=== PATIENT | female | born 1960 | race Two or more races ===

== ENCOUNTER 2024-06-30 12:28 | Outpatient (REF) | payer OTHER, SELFPAY ==
[2024-06-30 13:38] LABS: Alanine Aminotransferase 28 U/L (0-31); Albumin Level 3.9 g/dL (3.5-5.0); Alkaline Phosphatase 134 U/L (39-117); Anion Gap 9 (12-20); Aspartate Amino Transferase 20 U/L (5-31); Bilirubin Direct 0.2 mg/dL (0.0-0.5); Bilirubin Total 0.6 mg/dL (0.0-1.0); Blood Urea Nitrogen 13 mg/dL (9-16); Calcium 9.5 mg/dL (8.4-10.2); Carbon Dioxide 28 mmol/L (22-29); Chloride 108 mmol/L (96-108); Estimated Glomerular Filt Rate > 60; Glucose Random 106 mg/dL (60-115); Potassium 4.3 mmol/L (3.3-5.1); Sodium 141 mmol/L (135-145); Total Protein 7.1 g/dL (6.5-8.0)
[2024-06-30 13:49] LABS: Erythrocyte Sedimentation Rate 45 MM/HR (0-20)
[2024-06-30 13:51] LABS: Rheumatoid Factor < 13.0 IU/mL (<15.0)
[2024-06-30 13:58] LABS: Syphilis Screen Nonreactive (Nonreactive)
--- OUTSIDE RECORDS SUMMARY | 2024-06-30 14:48 | XMS_ITS | Clinical Summary ---
Author Organization [facility] Address [address] [place] [address] Care Team Providers Care Pathological Technician Name Role Phone Ioana Winkler MD Primary Care Provide r Allergies Active Allergy Reactions Criticality Noted Date Comments Hydrocodone-Acetaminop hen Swelling 04/18/2018 Intestines get swollen Penicillins Anaphylaxis High 11/23/2009 Tramadol Other (See Comments) 06/24/2014 Medications Medication Sig Dispensed Refills Start Date End Date Status clonazePAM (KlonoPIN) 2 MG tablet 0 04/17/2019 Active VRAYLAR 3 MG CAPS TK 1 C PO QAM . START 02-20-19 0 05/05/2019 Active cyclobenzaprine (FEXMID) 7.5 MG tablet cyclobenzaprine 7.5 mg tablet 0 02/28/2018 Active DULoxetine (CYMBALTA) DR capsule 60 mg 0 04/25/2019 Active fluticasone (FLONASE) 50 MCG/ACT nasal spray SHAKE WELL AND INSTILL 2 SPRAYS INTO EACH NOSTRIL DAILY 0 05/06/2019 Active hydrOXYzine (VISTARIL) 100 MG capsule hydroxyzine pamoate 100 mg capsule 0 Active loratadine (CLARITIN) 10 MG tablet loratadine 10 mg tablet 0 02/06/2019 Active omeprazole (PriLOSEC) 40 MG capsule TK 1 C PO D 0 05/05/2019 Active prazosin (MINIPRESS) 1 MG capsule TK 1 C PO QHS START ON 02-20-19 0 05/05/2019 Active Active Problems Problem Noted Date Diagnosed Date Asthma 05/11/2019 Chronic back pain 05/11/2019 HTN (hypertension) 05/11/2019 Diverticulosis 02/12/2018 Drug-seeking behavior 02/12/2018 Elevated LFTs 02/12/2018 History of claustrophobia 02/12/2018 History of gastric bypass 02/12/2018 Overview: Overview: Morbid obesity with BMI of 45.0-49.9 History of pancreatitis 02/12/2018 Hypokalemia 02/12/2018 Scoliosis of thoracic spine 02/12/2018 Class 1 obesity due to exces s calories with serious comorbidity and body mass index (BMI) of 32.0 to 32.9 in adult 12/26/2017 Abdominal pannus 07/15/2017 Intertrigo 07/15/2017 Lipodystrophy 07/15/2017 Allergic rhinitis 06/06/2017 Fibromyalgia 06/06/2017 Gastroesophageal reflux disease 06/06/2017 Migraine 06/06/2017 THAO on CPAP 06/06/2017 Post traumatic stress disorder (PTSD) 06/06/2017 Vitamin D deficiency 05/30/2017 Prolapsed bladder 05/16/2017 Social History Tobacco Use Types Packs/Day Years Used Date Smoking Tobacco: Never Smokeless Tobacco: Never Alcohol Use Standard Drinks/Week Comments No 0 (1 standard drink = 0.6 oz pur e alcohol) Sex and Gender Information Value Date Recorded Sex Assigned at Not on file Gender Identity Not on file Sexual Orientation Not on file Job Start Date Occupation Industry Not on file Not on file Not on file Last Filed Vital Signs Vital Sign Reading Time Taken Comments Blood Pressure - - Pulse - - Temperature - - Respiratory Rate - - Oxygen Saturation - - Inhaled Oxygen Concentration - - Weight 56.7 kg (125 lb) 05/11/2019 11:05 AM EST Height 157.5 cm (5' 2 ) 05/11/2019 11:05 AM EST Body Mass Index 22.86 05/11/2019 11:05 AM EST Plan of Treatment Health Maintenance Due Date Last Done Comments Hepatitis C Screening 1960 COVID-19 Vaccine (#1) 06/15/1960 Depression Screening 1971 Preventative Health Evaluation 12/15/1977 DTap / Tdap / Td (1 - Tdap) 12/15/1978 Cervical Cancer Screening (Pap Smear) 12/15/1980 Colon Cancer Screening (Colonoscopy) 12/15/2004 Breast Cancer Screening (Mammogram) 12/15/2009 Shingrix-Zoster Vaccine (1 o f 2) 12/15/2009 Pneumococcal Vaccine (2 of 2 - PPSV23 or PCV20) 03/28/2016 02/01/2016 Pneumococcal Vaccine (2 of 2 - PPSV23 or PCV20) 03/28/2016 02/01/2016 Influenza Vaccine (#1) 2023 9, 12/06/2016 RSV Adult > 60+ Yrs or (1 - 1-dose 75+ series) 12/15/2034 Hepatitis B Vaccines Aged Out No long er eligible based on patient's age to complete this topic RSV Ped < 20 months Aged Out No longe r eligible based on patient's age to complete this topic Care Teams Pathological Technician Relationship Specialty Start Date End Date Ioana Winkler MD PCP - General Internal Medicine 02/04/18
--- OUTSIDE RECORDS SUMMARY | 2024-06-30 14:48 | XMS_ITS | Clinical Summary ---
Author Organization [facility] [address] [place] [address] [place] [phone] Phone Care Team Providers Care Change Management Name Role Phone Syl Ardon MD Primary Care Provider [phone] Allergies No known active allergies Medications atorvastatin (LIPITOR) 20 mg tablet TAKE 1 TABLET BY MOUTH EVERY DAY 90 tablet 1 4 Active SUMAtriptan (IMITREX) 100 mg tablet TAKE 1 TABLET BY MOUTH 1 TIME IF NEEDED FOR MIGRAINE. MAY REPEAT DOSE ONCE IN 2 HOURS IF NO RELIEF. DO NOT EXCEED 2 DOSES IN 24 HOURS. 9 tablet 1 5 Active pantoprazole (PROTONIX) 40 mg EC tablet TAKE 1 TABLET BY MOUTH EVERY DAY 90 tablet 5 Active acetaminophen (TYLENOL) 500 mg tablet TAKE 2 TABLETS BY MOUTH EVERY 8 HOURS FOR 30 DAYS. 180 tablet 1 5 07/12/19 25 Active acetaminophen (TYLENOL) 500 mg tablet TAKE 2 TABLETS BY MOUTH EVERY 8 HOURS FOR 30 DAYS. 180 tablet 1 4 06/12/19 25 Discontinued Active Problems Problem Noted Date Diagnosed Date Mixed hyperlipidemia 04/21/2024 Hemiplegic migraine without status migrainosus, not intractable 04/21/2024 Chronic migraine without aur a without status migrainosus, not intractable 04/21/2024 Gastroesophageal reflux disease without esophagi tis 04/21/2024 Overweight 02/24/2024 Bariatric surgery status 02/24/2024 Encounters Date Type Department Care Team Description 04/21/2024 8:15 AM EST Office Visit Internal Medicine - [place] [address] [facility] [address] [place] [address] Syl Ardon MD Restless legs (Primary Dx); Tremor; Bariatric surgery status; Mixed hyperlipidemia; Chronic migraine without aura without status migrainosus, not intractable; Gastroesophageal reflux disease without esophagitis; Breast cancer screening by mammogram 04/21/2024 [place] [facility] - [address] [place] [address] Syl Ardon MD from Last 3 Months Surgical History Surgery Date Site/Laterality Comments CHOLECYSTECTOMY PROCEDURE: HISTORICAL CHOLECYSTECTOMY HYSTERECTOMY PROCEDURE: HISTORICAL HYSTERECTOMY OTHER SURGICAL HISTORY PROCEDURE: HISTORY OTHER; COMMENT: gastric bypass Medical History Medical History Date Comments HTN (hypertension) DX:HTN (hyper tension) Post traumatic stress disorder (PTSD) 06/06/2017 DX:Post traumatic stress disorder (PTSD) Fibromyalgia 06/06/2017 DX:Fibromyalgia Migraine 06/06/2017 DX:Migraine Allergic rhinitis 06/06/2017 DX:Allergic rh initis Morbid obesity with BMI of 4 5.0-49.9, adult ([facility] V24, [facility] V28) 06/06/2017 DX:Morbid obesity wit h BMI of 45.0-49.9, adult ([facility]) Abdominal pannus 07/15/2017 DX:Abdominal pa nnus Asthma DX:Asthma Chronic back pain DX:Chronic chivo k pain Class 1 obesity due to exces s calories with serious comorbidity and body mass index (BMI) of 32.0 to 32.9 in adult 12/26/2017 DX:Class 1 obesit y due to excess calories with serious comorbidity and body mass index (BMI) of 32.0 to 32.9 in adult Diverticulosis 02/12/2018 DX:Diverticulosi s Drug-seeking behavior 02/12/2018 DX:Drug-se eking behavior Elevated LFTs 02/12/2018 DX:Elevated LFTs Gastroesophageal reflux disease 06/06/2017 DX:Gastroesophageal reflux disease History of claustrophobia 02/12/2018 DX:His tory of claustrophobia History of gastric bypass 02/12/2018 DX:His tory of gastric bypass; COMMENT: Morbid obesity with BMI of 45.0-49.9 History of pancreatitis 02/12/2018 DX:Histo ry of pancreatitis Hypokalemia 02/12/2018 DX:Hypokalemia Intertrigo 07/15/2017 DX:Intertrigo Lipodystrophy 07/15/2017 DX:Lipodystrophy THAO on CPAP 06/06/2017 DX:THAO on CPAP Panic disorder 10/11/2017 DX:Panic disorde r Historical Medical DX 05/16/2017 DX:Prolaps ed bladder Scoliosis of thoracic spine 02/12/2018 DX:S coliosis of thoracic spine Family History Medical History Relation Name Comments Lung cancer Father Prostate cancer Father Breast cancer Mother Relation Name Status Comments Father Mother Social History Tobacco Use Types Packs/Day Years Used Date Smoking Tobacco: Never Smokeless Tobacco: Never Alcohol Use Standard Drinks/Week Comments No 0 (1 standard drink = 0.6 oz pur e alcohol) Comments Unknown Sex and Gender Information Value Date Recorded Sex Assigned at Not on file Legal Sex Female 5:07 AM EST Gender Identity Not on file Sexual Orientation Not on file Obstetrics History Last Filed Vital Signs Vital Sign Reading Time Taken Comments Blood Pressure 98/62 04/21/2024 8:24 AM EST Pulse 80 04/21/2024 8:24 AM EST Temperature 36.9 ??C (98.5 ??F) 02/24/2024 8:40 AM ES T Respiratory Rate - - Oxygen Saturation 98% 04/21/2024 8:24 AM EST Inhaled Oxygen Concentration - - Weight 70.8 kg (156 lb) 04/21/2024 8:24 AM EST Height 165.1 cm (5' 5 ) 02/24/2024 8:40 AM EST Body Mass Index 25.96 02/24/2024 8:40 AM EST Plan of Treatment Upcoming Encounters Date Type Department Care Team (Late st Contact Info) Description 09/16/2024 11:00 AM EDT Office Visit Bariatric Surgery - [place] [address] [facility] [address] [place] [phone] Nidhi Sales PA [address] [facility] [address] [place] [address] 10/19/2024 8:15 AM EDT Office Visit Internal Medicine - [place] [address] [facility] [address] [place] [phone] Syl Ardon MD [address] [facility] [address] [place] [phone] 12/28/2024 9:30 AM EDT [facility]ointment [facility] [address] [place] [phone] Health Maintenance Due Date Last Done Comments DTaP,Tdap,and Td Vaccines (1 - Tdap) 12/15/1978 Cervical Cancer Screening: Pap Smear 12/15/1980 Zoster Vaccines (1 of 2) 12/15/2009 Pneumococcal Vaccine: 50+ Years (2 of 2 - PPSV23) 03/28/2016 02/01/2016 Pneumococcal Vaccine: Pediatrics (0 to 5 Years) and At-Risk Patients (6 to 64 Years) (2 of 2 - PPSV23) 03/28/2016 02/01/2016 RSV Immunization Adult Patients (1 - Risk 60-74 years 1-dose series) 2019 Cholesterol Screening (Lipid Panel) 02/11/2022 Colorectal Cancer Screening: Colonoscopy 02/11/2022 Depression Screening 02/11/2022 HIV Screening 02/11/2022 Hepatitis C Screening 02/11/2022 Social Influencers of Health Screening 02/11/2022 COVID-19 Vaccine ( season) 2023 08/02/2020, 07/12/2020 Influenza Vaccine (Season Ended) 2024 03/27/2023, 11/19/2018, 12/06/2016, Additional history exists Hypertension/CHF/CAD Annual BMP Blood Test 11/24/2024 11/25/2023 Breast Cancer Screening 02/15/2025 02/15/2023 HIB Vaccines Aged Out No longer eligi ble based on patient's age to complete this topic HPV Vaccines Aged Out No longer eligi ble based on patient's age to complete this topic Hepatitis A Vaccines Aged Out No long er eligible based on patient's age to complete this topic Hepatitis B Vaccines Aged Out No long er eligible based on patient's age to complete this topic IPV Vaccines Aged Out No longer eligi ble based on patient's age to complete this topic MMR Vaccines Aged Out No longer eligi ble based on patient's age to complete this topic Meningococcal ACWY Vaccine Aged Out N o longer eligible based on patient's age to complete this topic Meningococcal B Vaccine Aged Out No l onger eligible based on patient's age to complete this topic RSV Immunization Patients Under 20 months Aged Out No longer eligible based on patient's age to complete this topic Varicella Vaccines Aged Out No longer eligible based on patient's age to complete this topic Procedures Procedure Name Priority Date/Time Associated Diagnosis Comments SCREENING MAMMOGRAPHY BI 2-VIEW BREAST INC CAD Routine 02/15/2023 2:22 PM EST Encounter for general adult medical examination without abnormal findings from Last 3 Months or Most Recently Relevant to Health Maintenance Results * SCREENING MAMMOGRAPHY BI 2-VIEW BREAST INC CAD (02/15/2023 2:22 PM EST) Anatomical Region Laterality Modality Radiographic Ophelia ging 11/13/2022 12:0 0 PM EDT Narrative 02/15/2023 6:05 PM EST This is a summary report. The complete report is available in the patient's medical record. If you cannot access the medical record, please contact the sending organization for a detailed fax or copy. Exam: Screening mammogram Findings: Digital bilateral full-field screening mammography is performed with tomosynthesis and interpreted with the aid of computer-aided detection. ??Comparison is made with 09/09/2014 and 09/29/2012. ?? Breast parenchyma is composed of scattered fibroglandular densities. ??No new suspicious mass, architectural distortion, or suspicious calcifications. Impression: No mammographic evidence of malignancy. BI-RADS 1 - negative Procedure Note Paige Pope MD - 04/16/2023 This is a summary report. The complete report is available in thepatient's medical record. If you cannot access the medical record, pleasecontact the sending organization for a detailed fax or copy. Exam: Screening mammogram Findings: Digital bilateral full-field screening mammography is performedwith tomosynthesis and interpreted with the aid of computer-aideddetection. Comparison is made with 09/09/2014 and 09/29/2012. Breast parenchyma is composed of scattered fibroglandular densities. Nonew suspicious mass, architectural distortion, or suspiciouscalcifications. Impression: No mammographic evidence of malignancy. BI-RADS 1 - negative us Syl Ardon MD IMG XR PROCEDURES Final Result from Last 3 Months or Most Recently Relevant to Health Maintenance Insurance [facility] [phone] Care Teams Change Management Relationship Specialty Start Date End Date Syl Ardon MD [address] [facility] [address] [place] [phone] PCP - General Internal Medicine 02/17/24
[2024-07-01 05:08] LABS: Lyme Abs Screen <0.90 index
[2024-07-02 15:19] LABS: Anti Nuclear Antibody Screen NEGATIVE (NEGATIVE)
[2024-07-06 21:59] LABS: Aldolase 3.6 U/L (<=8.1)
== END 2024-06-30 12:29 | disposition home or self-care (01) ==
LOC: HO.LAB 12:28
PROVIDERS: PCP Internal Medicine; Visit Provider Psychiatry & Neurology Neurology
DX: M79.7 Fibromyalgia (principal)
CPT/HCPCS: 36415; 80048; 80076; 82085; 82550; 85652; 86038; 86431; 86617; 86618; 86780

== ENCOUNTER → 2024-09-10 11:10 | Outpatient (BNV) | payer OTHER, SELFPAY | PROVIDERS: PCP Internal Medicine; Visit Provider Psychiatry & Neurology Neurology | DX: G62.89 Other specified polyneuropathies (principal) | CPT/HCPCS: 95886; 95912 ==

== ENCOUNTER 2024-09-10 11:11 | Outpatient (REF) | payer OTHER, SELFPAY ==
--- NOTE | 2024-09-10 | EMG_ITS ---
Bilateral tibial and peroneal motor studies were performed. Bilateral superficial peroneal, sural, and median and lateral mixed plantars sensory studies were performed tibial H reflexes were obtained and needle examination was performed. 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 Otherwise no significant abnormality noted. Please review neurophysiology data for further details attached to this report MTDD
--- OUTSIDE RECORDS SUMMARY | 2024-09-10 12:01 | XMS_ITS | Clinical Summary ---
Author Organization [facility] Address [address] [place] [address] Care Team Providers Care Scrap Sorter Name Role Phone Ioana Winkler MD Primary [...] PPSV23 or PCV20) 03/28/2016 02/01/2016 Influenza Vaccine (Season Ended) 2024 11/19/2018, 12/06/2016 RSV Adult > 60+ Yrs or (1 - 1-dose 75+ series) 12/15/2034 Hepatitis B Vaccines Aged Out No long er eligible based on patient's age to complete this topic RSV Ped < 20 months Aged Out No longe r eligible based on patient's age to complete this topic Care Teams Scrap Sorter Relationship Specialty Start Date End Date Ioana Winkler MD PCP - General Internal Medicine 02/04/18
== END 2024-09-10 11:12 | disposition home or self-care (01) ==
LOC: HO.NEURO 11:11
PROVIDERS: PCP Internal Medicine; Visit Provider Psychiatry & Neurology Neurology
DX: M79.7 Fibromyalgia (principal); G62.9 Polyneuropathy, unspecified; R25.1 Tremor, unspecified
CPT/HCPCS: 95886; 95913

== ENCOUNTER 2024-11-10 11:32 | Outpatient (AMB) | payer OTHER, SELFPAY ==
--- NOTE | 2024-11-10 12:00 | MHC.OFFVIS ---
Intake Visit Reasons: after EMG/NCV Allergies Penicillins (PENICILLINS) Allergy (Unknown, Unverified 11/26/19 16:03) DIFFICULTY BREATHING tramadol Allergy (Verified 10/19/24 15:03) Unknown Medication List - Last Reconciled 11/10/24 by Noel Chen MD cariprazine (Vraylar) 4.5 mg PO DAILY clonazepam 1 mg PO TID clonidine HCl 0.1 mg PO TID duloxetine 60 mg PO DAILY pregabalin 150 mg PO BID ropinirole 4 mg (2 x 2 mg) PO BEDTIME sumatriptan succinate 100 mg PO DAILY PRN vortioxetine (Trintellix) 20 mg PO DAILY HPI Comments Details: 63 years old woman with diagnosis of PTSD was seen for generalized body pain in [facility]. 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 She complain of pain all over body especially in her hands arms and back 4 years. A lumbar spine MRI in [facility] in 2018 was okay. She was prescribed gabapentin in the past that did not help. [facility] Medical History (Updated 11/10/24 @ 12:03 by Noel Chen MD) Fibroadenoma PTSD (post-traumatic stress disorder) Tremor Migraine RLS (restless legs syndrome) Fibromyalgia Surgical History (Updated 10/19/24 @ 15:01 by Khalida Burnett MA) H/O bariatric surgery Review of Systems Const Details: - Neurologic: Reports neuropathy in the feet. Denies significant problem indicated by nerve tests. - Psychological: Denies experiencing psychological stress. - Musculoskeletal: Reports widespread pain. - Sleep: Reports restless leg syndrome. Physical Exam Neuro Other: Mental Status: Alert and oriented to person, place, and time. Normal attention. Normal spontaneous speech, fluency, and comprehension. No obvious issues with mood and memory. Affect is appropriate. Cranial Nerves: CN II: Visual garcia full to confrontation, visual acuity intact. CN III, IV, : Pupils equal, round, reactive to light and accommodation. Extraocular movements are normal. CN V: Facial sensation is normal. CN VII: Facial movements symmetrical. CN VIII: Hearing intact to bedside conversation is normal. CN IX, X: Palate elevates symmetrically. CN XI: Shoulder shrug and head turn symmetrical. CN XII: Tongue midline without atrophy or fasciculations. Extrapyramidal: Full facial expressions and blinking. No rigidity. Movements are appropriate with no tremor or abnormality. Speech: Normal; no dysarthria or tremor. Assessment & Plan Assessment & Plan (1) Fibromyalgia: Comment: EMG/NCS at [facility] in September 2024: B/L distal tibial sensory REINFORCING ROD LAYER Code(s): M79.7 - Fibromyalgia Category: Medical Plan Impression: a: Fibromyalgia b: RLS Rec: a: DC gabapentin b: Start Pregabilin 15omg bid c: Continue duloxetine 60mg bid d: Ropinorole 2mg, 2 at night Medications: New ropinirole administer 1-3 hours before bedtime 4 mg (2 x 2 mg) PO BEDTIME 360 tabs 0RF pregabalin 150 mg PO BID 180 caps 0RF duloxetine 60 mg PO DAILY 90 caps 1RF Coding Level of Care Code Est Pt Level 5 (71399) Diagnoses Fibromyalgia M79.7
--- OUTSIDE RECORDS SUMMARY | 2024-11-10 13:11 | XMS_ITS ---
Author Name [facility] Organization Unknown Care Team Organization Name Specialty Phone Email Start Date End [facility] DORA VELÁSQUEZ Primary Care 01/16/2022 10/28/19 24
--- OUTSIDE RECORDS SUMMARY | 2024-11-10 13:11 | XMS_ITS | Clinical Summary ---
Author Organization [facility] [address] [place] [address] [place] [phone] Phone Care Team Providers Care Offset Lithographic Press Operator Name Role Phone Syl Ardon MD Primary Care Provider [phone] Allergies Active Allergy Reactions Criticality Noted Date Comments Tramadol 10/19/2024 Medications calcium carbonate-jovana min D3 600 mg-5 mcg (200 unit) per tablet TAKE 1 TABLET BY MOUTH TWICE A DAY 180 tablet 1 5 Active pantoprazole (PROTONIX) 40 mg EC tablet TAKE 1 TABLET BY MOUTH EVERY DAY 90 tablet 5 Active atorvastatin (LIPITOR) 20 mg tablet TAKE 1 TABLET BY MOUTH EVERY DAY 90 tablet 1 5 Active SUMAtriptan (IMITREX) 100 mg tablet Take 1 tablet (100 mg total) by mouth 1 (one) time each day if needed for migraine. 10 tablet 3 5 Active Fasenra 30 mg/mL syringe Inject 1 mL (30 mg total) under the skin 1 (one) time. 5 Active cholecalcifero l (Vitamin D3) 50 mcg (2,000 unit) tablet Take 1 tablet (2,000 Units total) by mouth 1 (one) time each day. 90 tablet 2 5 Active acetaminophen (TYLENOL) 500 mg tablet TAKE 2 TABLETS BY MOUTH EVERY 8 HOURS FOR 30 DAYS. 180 tablet 1 5 11/26/19 25 Active acetaminophen (TYLENOL) 500 mg tablet TAKE 2 TABLETS BY MOUTH EVERY 8 HOURS FOR 30 DAYS. 180 tablet 1 5 10/27/19 25 Discontinued Active Problems Problem Noted Date Diagnosed Date Morbid (severe) obesity due to excess calories ([facility] V24, [facility] V28) 10/19/2024 Mixed hyperlipidemia 04/21/2024 Hemiplegic migraine without status migrainosus, not intractable 04/21/2024 Chronic migraine without aur a without status migrainosus, not intractable 04/21/2024 Gastroesophageal reflux disease without esophagi tis 04/21/2024 Overweight 02/24/2024 Bariatric surgery status 02/24/2024 Encounters Date Type Department Care Team Description 10/19/2024 8:15 AM EDT Office Visit Internal Medicine - [facility] [address] [place] [phone] Syl Ardon MD Adult general medical examination (Primary Dx); Mixed hyperlipidemia; Chronic migraine without aura without status migrainosus, not intractable; Gastroesophageal reflux disease without esophagitis; Vitamin D deficiency; Other fatigue; Morbid (severe) obesity due to excess calories ([facility] V24, [facility] V28); Multi-system degeneration of the autonomic nervous system ([facility] V24, [facility] V28); LFT elevation 09/16/2024 11:00 AM EDT Office Visit Bariatric Surgery - [facility] [address] [place] [address] Nidhi Sales PA Overweight (BMI 25.0-29.9) (Primary Dx); Bariatric surgery status from Last 3 Months Surgical History Surgery [...] obesity with BMI of 4 5.0-49.9, adult ([facility] V24, [facility] V28) 06/06/2017 DX:Morbid obesity wit h BMI of 45.0-49.9, adult ([facility]) Abdominal pannus 07/15/2017 DX:Abdominal pa nnus Asthma [...] Sign Reading Time Taken Comments Blood Pressure 118/76 10/19/2024 8:09 AM EDT Pulse 84 09/16/2024 10:59 AM EDT Temperature 36.4 C (97.5 F) 10/19/2024 8:09 AM EDT Respiratory Rate - - Oxygen Saturation 98% 04/21/2024 8:24 AM EST Inhaled Oxygen Concentration - - Weight 71.7 kg (158 lb) 10/19/2024 8:09 AM EDT Height 165.1 cm (5' 5 ) 10/19/2024 8:09 AM EDT Body Mass Index 26.29 10/19/2024 8:09 AM EDT Plan of Treatment Upcoming Encounters Date Type Department Care Team ([facility] Contact Info) Description 12/24/2024 11:15 AM EDT Office Visit Bariatric Surgery - [facility] [address] [place] [address] Nidhi Sales PA [address] [place] [phone] 12/28/2024 9:30 AM EDT [facility]ointment [facility] [address] [place] [address] Health Maintenance Due Date Last Done Comments DTaP,Tdap,and Td Vaccines (1 - Tdap) 12/15/1978 Cervical Cancer Screening: Pap Smear 12/15/1980 Pneumococcal Vaccine: 50+ Years (2 of 2 - PPSV23) 03/28/2016 02/01/2016 RSV Immunization Adult Patients (1 - Risk 60-74 years 1-dose series) 2019 Colorectal Cancer Screening: Colonoscopy 02/11/2022 HIV Screening 02/11/2022 Hepatitis C Screening 02/11/2022 Social Influencers of Health Screening 02/11/2022 Depression Screening 03/11/2024 Zoster Vaccines (2 of 2) 07/07/2024 05/12/2024 COVID-19 Vaccine (3 - season) 2024 08/02/2020, 07/12/2020 Influenza Vaccine (#1) 2024 , 03/27/2023, 11/19/2018, Additional history exists Breast Cancer Screening 02/15/2025 02/15/2023 Hypertension/CHF/CAD Annual BMP Blood Test 10/19/2025 10/19/2024, 11/25/2023 Cholesterol Screening (Lipid Panel) 10/19/2029 10/19/2024 HIB Vaccines Aged Out No longer eligi [...] Procedure Name Priority Date/Time Associated Diagnosis Comments VITAMIN D 25 HYDROXY Routine 10/19/2024 8:30 AM EDT Mixed hyperlipidemia Chronic migraine without aura without status migrainosus, not intractable Gastroesophageal reflux disease without esophagitis Adult general medical examination Vitamin D deficiency Other fatigue VITAMIN B12 Routine 10/19/2024 8:30 AM EDT Mixed hyperlipidemia Chronic migraine without aura without status migrainosus, not intractable Gastroesophageal reflux disease without esophagitis Adult general medical examination Vitamin D deficiency Other fatigue THYROID STIMULATING HORMONE Routine 10/19/2024 8:30 AM EDT Mixed hyperlipidemia Chronic migraine without aura without status migrainosus, not intractable Gastroesophageal reflux disease without esophagitis Adult general medical examination Vitamin D deficiency Other fatigue COMPLETE BLOOD COUNT Routine 10/19/2024 8:30 AM EDT Mixed hyperlipidemia Chronic migraine without aura without status migrainosus, not intractable Gastroesophageal reflux disease without esophagitis Adult general medical examination Vitamin D deficiency Other fatigue LIPID PANEL WITH REFLEX TO DIRECT LDL Routine 10/19/2024 8:30 AM EDT Mixed hyperlipidemia Chronic migraine without aura without status migrainosus, not intractable Gastroesophageal reflux disease without esophagitis Adult general medical examination Vitamin D deficiency Other fatigue COMPREHENSIVE METABOLIC PANEL Routine 10/19/2024 8:30 AM EDT Mixed hyperlipidemia Chronic migraine without aura without status migrainosus, not intractable Gastroesophageal reflux disease without esophagitis Adult general medical examination Vitamin D deficiency Other fatigue HEMOGLOBIN A1C Routine 10/19/2024 8:30 AM EDT Mixed hyperlipidemia Chronic migraine without aura without status migrainosus, not intractable Gastroesophageal reflux disease without esophagitis Adult general medical examination Vitamin D deficiency Other fatigue SCREENING MAMMOGRAPHY BI 2-VIEW BREAST INC CAD Routine 02/15/2023 2:22 PM EST Encounter for general adult medical examination without abnormal findings from Last 3 Months or Most Recently Relevant to Health Maintenance Results * Lipid panel with reflex to direct LDL (10/19/2024 8:30 AM EDT) Cholesterol 163 0 - 200 mg/dL LAB CHEMISTRY METHOD 10/19/2024 10:07 AM [facility] Triglycerides 91 0 - 150 mg/dL LAB CHEMISTRY METHOD 10/19/2024 10:07 AM [facility] HDL 78 >=40 mg/dL LAB CHEMISTRY METHOD 10/19/2024 10:07 AM [facility] LDL Calculated 67 0 - 100 mg/dL LAB CHEMISTRY METHOD 10/19/2024 10:07 AM [facility] Comment:Estimated LDL Calcul ated using equation: Total cholesterol - HDL cholesterol - (Triglycerides/5) VLDL Cholesterol Sam 18.2 mg/dL LAB CHEMISTRY METHOD 10/19/2024 10:07 AM [facility] Non HDL Chol. (LDL+VLDL) 85 <145 mg/dL LAB CHEMISTRY METHOD 10/19/2024 10:07 AM [facility] Chol/HDL Ratio 2.1 0.0 - 4.4 LAB CHEMISTRY METHOD 10/19/2024 10:07 AM [facility] Blood Venous blood specimen / Unknown Venipuncture / Unknown 10/19/2024 8:30 AM EDT 10/19/2024 8:30 AM EDT us Syl D Chaganti MD LAB BLOOD ORDERABLES Final Res ult Performing Organization Address City/[facility]/ZIP Co de Phone Number [facility] [address] [place] [address], [place] [phone] * (ABNORMAL) Vitamin D 25 hydroxy (10/19/2024 8:30 AM EDT) [facility] Vit D, 25-Hydroxy 28.2(L) 30.0 - 80.0 ng/mL LAB CHEMISTRY METHOD 10/19/2024 11:24 AM EDT [facility] Blood Venous blood specimen / Unknown Venipuncture / Unknown 10/19/2024 8:30 AM EDT 10/19/2024 8:30 AM EDT us Syl Ardon MD LAB BLOOD ORDERABLES Final Res ult Performing Organization Address [facility]/ZIP Co de Phone Number [facility] [address] [place] [address], [place] [phone] * (ABNORMAL) Complete blood count (10/19/2024 8:30 AM EDT) [facility] WBC 5.2 4.8 - 10.8 K/mcL LAB HEMETOLOGY METHOD 10/19/2024 10:02 AM EDT [facility] RBC 4.20 3.80 - 4.80 M/mcL LAB HEMETOLOGY METHOD 10/19/2024 10:02 AM EDT [facility] Hemoglobin 12.3 11.5 - 16.0 g/dL LAB HEMETOLOGY METHOD 10/19/2024 10:02 AM EDT [facility] Hematocrit 39.4 35.0 - 47.0 % LAB HEMETOLOGY METHOD 10/19/2024 10:02 AM EDT [facility] MCV 93.4 79.0 - 98.0 FL LAB HEMETOLOGY METHOD 10/19/2024 10:02 AM EDT [facility] MCH 29.1 27.0 - 32.0 pcg LAB HEMETOLOGY METHOD 10/19/2024 10:02 AM EDT [facility] MCHC 31.2(L) 32.0 - 37.0 g/dL LAB HEMETOLOGY METHOD 10/19/2024 10:02 AM EDT [facility] RDW 12.3 11.0 - 15.0 % LAB HEMETOLOGY METHOD 10/19/2024 10:02 AM EDT [facility] Platelets 312 130 - 400 K/mcL LAB HEMETOLOGY METHOD 10/19/2024 10:02 AM EDT [facility] MPV 10.4 7.0 - 11.0 FL LAB HEMETOLOGY METHOD 10/19/2024 10:02 AM EDT [facility] NRBC 0.0 <1.0 % LAB HEMETOLOGY METHOD 10/19/2024 10:02 AM EDT [facility] NRBC Absolute 0.00 <0.10 K/mcL LAB HEMETOLOGY METHOD 10/19/2024 10:02 AM EDT [facility] Blood Venous blood specimen / Unknown Venipuncture / Unknown 10/19/2024 8:30 AM EDT 10/19/2024 8:30 AM EDT us Syl Ardon MD LAB BLOOD ORDERABLES Final Res ult [facility] [address] [place] [address], * Thyroid stimulating hormone (10/19/2024 8:30 AM EDT) TSH 1.90 0.40 - 4.00 mcIU/mL LAB CHEMISTRY METHOD 10/19/2024 11:24 AM EDT [facility] Blood Venous blood specimen / Unknown Venipuncture / Unknown 10/19/2024 8:30 AM EDT 10/19/2024 8:30 AM EDT us Syl Ardon MD LAB BLOOD ORDERABLES Final Res ult Performing Organization Address City/[facility]/ZIP Co de Phone Number [facility] [address] [place] [address], [place] [phone] * Hemoglobin A1c (10/19/2024 8:30 AM EDT) Hemoglobin A1C 5.4 <6.5 % LAB CHEMISTRY METHOD 10/19/2024 11:23 AM EDT [facility] Mean Bld Glu Estim. 108 mg/dL LAB CHEMISTRY METHOD 10/19/2024 11:23 AM EDT [facility] Blood Venous blood specimen / Unknown Venipuncture / Unknown 10/19/2024 8:30 AM EDT 10/19/2024 8:30 AM EDT us Syl Ardon MD LAB BLOOD ORDERABLES Final Res ult Performing Organization Address [facility]/ZIP Co de Phone Number [facility] [address] [place] [address], [place] [phone] * Vitamin B12 (10/19/2024 8:30 AM EDT) Vitamin B-12 645 250 - 900 pcg/mL LAB CHEMISTRY METHOD 10/19/2024 10:31 AM EDT [facility] Blood Venous blood specimen / Unknown Venipuncture / Unknown 10/19/2024 8:30 AM EDT 10/19/2024 8:30 AM EDT us Syl Ardon MD LAB BLOOD ORDERABLES Final Res ult Performing Organization Address City/[facility]/ZIP Co de Phone Number [facility] [address] [place] [address], [place] [phone] * (ABNORMAL) Comprehensive metabolic panel (10/19/2024 8:30 AM EDT) Sodium 141 133 - 145 mmol/L LAB CHEMISTRY METHOD 10/19/2024 10:42 AM [facility] Potassium 4.5 3.5 - 5.5 mmol/L LAB CHEMISTRY METHOD 10/19/2024 10:42 AM [facility] Chloride 107 96 - 110 mmol/L LAB CHEMISTRY METHOD 10/19/2024 10:42 AM [facility] CO2 29 21 - 32 mmol/L LAB CHEMISTRY METHOD 10/19/2024 10:42 AM [facility] Anion Gap 5 3 - 11 LAB CHEMISTRY METHOD 10/19/2024 10:42 AM [facility] Glucose 87 70 - 100 mg/dL LAB CHEMISTRY METHOD 10/19/2024 10:42 AM [facility] BUN 13 5 - 25 mg/dL LAB CHEMISTRY METHOD 10/19/2024 10:42 AM [facility] Creatinine 0.73 0.50 - 1.10 mg/dL LAB CHEMISTRY METHOD 10/19/2024 10:42 AM [facility] eGFR 92 >=60 mL/min/1. 73m2 LAB CHEMISTRY METHOD 10/19/2024 10:42 AM [facility] Comment:Calculation based on the Chronic Kidney Disease Epidemiology Collaboration (CKD-EPI) equation refit without adjustment for race. BUN/Creatinine Ratio 17.8 LAB CHEMISTRY METHOD 10/19/2024 10:42 AM [facility] Calcium 9.3 8.5 - 10.5 mg/dL LAB CHEMISTRY METHOD 10/19/2024 10:42 AM [facility] AST (SGOT) 26 10 - 42 unit/L LAB CHEMISTRY METHOD 10/19/2024 10:42 AM [facility] ALT (SGPT) 78(H) 10 - 60 unit/L LAB CHEMISTRY METHOD 10/19/2024 10:42 AM EDT [facility] Alkaline Phosphatase 163(H) 42 - 121 unit/L LAB CHEMISTRY METHOD 10/19/2024 10:42 AM EDT [facility] Total Protein 7.0 6.0 - 8.0 g/dL LAB CHEMISTRY METHOD 10/19/2024 10:42 AM EDT [facility] Albumin 3.7 3.2 - 5.0 g/dL LAB CHEMISTRY METHOD 10/19/2024 10:42 AM EDT [facility] Total Bilirubin 0.4 0.0 - 1.4 mg/dL LAB CHEMISTRY METHOD 10/19/2024 10:42 AM EDT [facility] Blood Venous blood specimen / Unknown Venipuncture / Unknown 10/19/2024 8:30 AM EDT 10/19/2024 8:30 AM EDT us Syl Ardon MD LAB BLOOD ORDERABLES Final Res ult [facility] [address] [place] [address], * SCREENING MAMMOGRAPHY BI 2-VIEW BREAST INC [...] interpreted with the aid of computer-aided detection. Comparison is made with 09/09/2014 and 09/29/2012. Breast parenchyma is composed of scattered fibroglandular densities. No new suspicious mass, architectural distortion, or suspicious [...] evidence of malignancy. BI-RADS 1 - negative Syl Ardon MD IMG XR PROCEDURES Final Result from Last 3 Months or Most Recently Relevant to Health Maintenance Insurance [employer] [place] [phone] Care Teams Offset Lithographic Press Operator Relationship Specialty Start Date End Date Syl Ardon MD [address] [place] [address] PCP - General Internal Medicine 02/17/24
--- OUTSIDE RECORDS SUMMARY | 2024-11-10 13:11 | XMS_ITS | Clinical Summary ---
Author Organization [facility] Address [address] [place] [address] Care Team Providers Care Director Of Ancillary Services Name Role Phone Ioana Winkler MD Primary [...] or PCV20) 03/28/2016 02/01/2016 Influenza Vaccine (#1) 2024 9, 12/06/2016 RSV Adult > 60+ Yrs or (1 - 1-dose 75+ series) 12/15/2034 Hepatitis B Vaccines Aged Out No long er eligible based on patient's age to complete this topic RSV Ped < 20 months Aged Out No longe r eligible based on patient's age to complete this topic Care Teams Director Of Ancillary Services Relationship Specialty Start Date End Date Ioana Winkler MD PCP - General Internal Medicine 02/04/18
== END 2024-11-10 12:15 | disposition home or self-care (01) ==
LOC: HO.HSM 11:33
PROVIDERS: PCP Internal Medicine; Visit Provider Psychiatry & Neurology Neurology
DX: M79.7 Fibromyalgia (principal)
CPT/HCPCS: 99215

== ENCOUNTER → 2024-11-10 11:32 | Outpatient (BNVA) | payer OTHER, SELFPAY | PROVIDERS: PCP Internal Medicine; Visit Provider Psychiatry & Neurology Neurology | DX: M79.7 Fibromyalgia (principal); G25.81 Restless legs syndrome | CPT/HCPCS: 99212 ==

== ENCOUNTER 2025-02-23 12:09 | Outpatient (AMB) | payer MEDICAID, SELFPAY ==
--- NOTE | 2025-02-23 12:51 | MHC.OFFVIS ---
Intake Visit Reasons: 3m Allergies Penicillins (PENICILLINS) Allergy (Unknown, Unverified 11/26/19 16:03) DIFFICULTY BREATHING tramadol Allergy (Verified 10/19/24 15:03) Unknown HPI Comments Details: 64 years old woman with diagnosis of PTSD was seen for generalized body pain in [facility]. 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 She complain of pain all over body especially in her hands arms and back 4 years. A lumbar spine MRI in [facility] in 2018 was okay. She is presenting for follow-up and management of chronic low back pain. She reports that her current regimen of pregabalin and duloxetine is not providing any relief for the pain. Her past medication trials include gabapentin, and she reports she can take Tylenol. She cannot take naproxen and is unable to tolerate tramadol due to sedation. She has never taken oxycodone. Regarding sleep, she notes that her sleep medication is helpful and she sleeps for about five hours. She reports her anxiety level is okay and she does not take medication for it. [facility] Medical History (Updated 02/23/25 @ 12:53 by Noel Chen MD) Fibroadenoma PTSD (post-traumatic stress disorder) Tremor Migraine RLS (restless legs syndrome) Fibromyalgia Surgical History (Updated 10/19/24 @ 15:01 by Khalida Burnett MA) H/O bariatric surgery Review of Systems Narrative - Musculoskeletal: Reports pain in the lower back and joints. - Neurological: Denies headaches. - Psychiatric: Reports anxiety level is okay. - Sleep: Reports sleeping for about five hours per night. Physical Exam Neuro Other: Mental Status: Alert and oriented to person, place, and time. Normal attention. Normal spontaneous speech, fluency, and comprehension. Cranial Nerves: CN II: Visual garcia full to confrontation, visual acuity intact. CN III, IV, : Pupils equal, round, reactive to light and accommodation. Extraocular movements are normal. CN V: Facial sensation is normal. CN VII: Facial movements symmetrical. CN VIII: Hearing intact to bedside conversation is normal. CN IX, X: Palate elevates symmetrically. CN XI: Shoulder shrug and head turn symmetrical. CN XII: Tongue midline without atrophy or fasciculations. Extrapyramidal: Full facial expressions and blinking. No rigidity. Movements are appropriate with no tremor or abnormality. Speech: Normal; no dysarthria or tremor. 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 I advised her that we will stop these two medications and start a different medication to be taken once a day. Medications: New venlafaxine ER 150 mg PO DAILY 90 caps 0RF Discontinued pregabalin Discontinued Reason: Doctor's Order 150 mg PO BID 180 caps 0RF duloxetine Discontinued Reason: Doctor's Order 60 mg PO DAILY 90 caps 1RF Coding Level of Care Code Est Pt Level 3 (36786) Diagnoses Fibromyalgia M79.7
--- OUTSIDE RECORDS SUMMARY | 2025-02-23 15:59 | XMS_ITS | Clinical Summary ---
Author Organization [facility] [address] [place] [address] [place] [phone] Phone Care Team Providers Care Director Of Institutional Sales Name Role Phone Syl Ardon MD Primary Care Provider [phone] Allergies Active Allergy Reactions Criticality Noted Date Comments Tramadol 10/19/2024 Medications atorvastatin (LIPITOR) 20 mg tablet TAKE 1 TABLET BY MOUTH EVERY DAY 90 tablet 1 08/17/2024 Active SUMAtriptan (IMITREX) 100 mg tablet Take 1 tablet (100 mg total) by mouth 1 (one) time each day if needed for migraine. 10 tablet 3 10/09/2024 Active Fasenra 30 mg/mL syringe Inject 1 mL (30 mg total) under the skin 1 (one) time. 09/24/2024 Active cholecalciferol (Vitamin D3) 50 mcg (2,000 unit) tablet Take 1 tablet (2,000 Units total) by mouth 1 (one) time each day. 90 tablet 2 10/21/2024 Active pantoprazole (PROTONIX) 40 mg EC tablet TAKE 1 TABLET BY MOUTH EVERY DAY 90 tablet 11/11/2024 Active calcium carbonate-vitam in D3 600 mg-5 mcg (200 unit) per tablet TAKE 1 TABLET BY MOUTH TWICE A DAY 180 tablet 1 12/17/2024 Active QUEtiapine (SEROquel) 25 mg tablet Take 1 tablet (25 mg total) by mouth at bedtime. Active acetaminophen (TYLENOL) 500 mg tablet TAKE 2 TABLETS BY MOUTH EVERY 8 HOURS FOR 30 DAYS. 180 tablet 1 01/06/2025 02/06/20 25 Active Problems Problem Noted Date Diagnosed Date Morbid (severe) obesity due to excess calories 0 10/19/2024 Mixed hyperlipidemia 04/21/2024 Hemiplegic migraine without status migrainosus, not intractable 04/21/2024 Chronic migraine without aur a without status migrainosus, not intractable 04/21/2024 Gastroesophageal reflux disease without esophagi tis 04/21/2024 Overweight 02/24/2024 Bariatric surgery status 02/24/2024 Encounters Date Type Department Care Team Description 01/14/2025 Results Follow-Up Internal Medicine - [employer] 175 [facility] [address] [place] [address] Syl Ardon MD 01/13/2025 11:06 AM EST - 01/13/2025 11:59 PM EST Hospital Encounter [facility] [address] [place] [phone] Breast cancer screening by mammogram Discharge Disposition: Home or Self Care 12/24/2024 11:15 AM EDT Office Visit Bariatric Surgery - [employer] 175 [facility] [address] [place] [phone] Nidhi Sales PA Overweight (BMI 25.0-29.9) (Primary [...] obesity with BMI of 4 5.0-49.9, adult (CMS/HCC V24, CMS/HCC V28) 06/06/2017 DX:Morbid obesity wit h BMI of 45.0-49.9, adult ([facility]) Abdominal pannus 07/15/2017 DX:Abdominal pa nnus Asthma [...] = 0.6 oz pur e alcohol) Comments No Sex and Gender Information Value Date Recorded Sex Assigned at Female 01/01/2025 11:12 AM EDT Legal Sex Female 5:07 AM EST Gender Identity Not on file Sexual Orientation Not on file Obstetrics History Para Term AB IAB SAB Ectopic Multiple Livin g Live Births 6 Last Filed Vital Signs Vital Sign Reading Time Taken Comments Blood Pressure 114/81 12/24/2024 11:16 AM EDT Pulse 98 12/24/2024 11:16 AM EDT Temperature 36.4 C (97.5 F) 10/19/2024 8:09 AM EDT Respiratory Rate - - Oxygen Saturation 98% 04/21/2024 8:24 AM EST Inhaled Oxygen Concentration - - Weight 76.7 kg (169 lb) 01/13/2025 11:24 AM EST Height 162.6 cm (5' 4 ) 01/13/2025 11:24 AM EST Body Mass Index 29.01 01/13/2025 11:24 AM EST Plan of Treatment Upcoming Encounters Date Type Department Care Team (Late st Contact Info) Description 03/24/2025 10:00 AM EST Nutrition Bariatric Surgery - [employer] [address] [phone] Yaritza Angeles, RD [address] [address] 07/06/2025 8:00 AM EDT Office Visit Bariatric Surgery - [facility] [address] [phone] Nidhi Sales PA [address] [place] [address] Health Maintenance Due Date Last Done Comments Colorectal Cancer Screening: Colonoscopy 1960 DTaP,Tdap,and Td Vaccines (1 - Tdap) 12/15/1978 Cervical Cancer Screening: Pap Smear 12/15/1980 RSV Immunization Adult Patients (1 - Risk 50-74 years 1-dose series) 12/15/2009 Pneumococcal Vaccine: 50+ Years (2 of 2 - PPSV23, PCV20, or PCV21) 03/28/2016 02/01/2016 Hepatitis C Screening 02/11/2022 Social Influencers of Health Screening 02/11/2022 Depression Screening 03/11/2024 COVID-19 Vaccine ( - season) 2024 08/02/2020, 07/12/2020 Influenza Vaccine (#1) 2024 , 03/27/2023, 11/19/2018, Additional history exists Falls Risk Assessment 12/15/2024 Hypertension/CHF/CAD Annual BMP Blood Test 10/19/2025 10/19/2024, 11/25/2023 Breast Cancer Screening 01/13/2027 01/13/2025, 02/15 Cholesterol Screening (Lipid Panel) 10/19/2029 10/19/2024 Osteoporosis Screening (Bone Density Screening) 02/15/2033 02/15/2023 Zoster Vaccines Completed 10/28/2024, 05/12/2024 HIB Vaccines Aged Out No longer eligi [...] Procedure Name Priority Date/Time Associated Diagnosis Comments MG MAMMO DIGITAL SCREENING W NATE BILAT Routine 01/13/2025 11:25 AM EST Breast cancer screening by mammogram COMPREHENSIVE METABOLIC PANEL Routine 10/19/2024 8:30 AM [...] medical examination Vitamin D deficiency Other fatigue DXA BONE DENSITY STUDY 1+ SITS AXIAL SKEL Routine 02/15/2023 2:51 PM EST Encounter for general adult medical examination without abnormal findings from Last 3 Months or Most Recently Relevant to Health Maintenance Results * MG Mammo Digital Screening w Nate bilat (01/13/2025 11:25 AM EST) Anatomical Region Laterality Modality Breast Bilateral Mammography 01/14/2025 8:40 AM EST Impressions 01/14/2025 8:42 AM EST No evidence of breast malignancy. BI-RADS CATEGORY: 1 - NEGATIVE RECOMMENDATION: Screening bilateral mammogram is recommended in 1 year. Mammo Location: [facility], [address] [place] [address], [id number], . -------- FINAL REPORT -------- Dictated By: Lauren Arita Dictated Date: 01/14/2025 08:40 ET Assigned Physician: Lauren Arita Reviewed and Electronically Signed By: Lauren Arita Signed Date: 01/14/2025 08:42 ET Workstation ID: [id number] Transcribed By: Self Edit Transcribed Date: 01/14/2025 08:40 ET Narrative 01/14/2025 8:42 AM EST CLINICAL: 64 years old, Female, routine annual exam. COMPARISON: Multiple prior studies dating back to 2017 TECHNIQUE: Bilateral MLO and CC views were obtained digitally with 3-D mammogram (digital breast tomosynthesis). Computer-aided detection was utilized in evaluation of this exam (CAD). FINDINGS: There is no evidence of suspicious mass or architectural distortion. No worrisome calcifications are evident. There has been no significant change from prior exam(s). BREAST DENSITY: B - There are scattered areas of fibroglandular density. Procedure Note Lauren Arita MD - 01/14/2025 CLINICAL: 64 years old, Female, routine annual exam. COMPARISON: Multiple prior studies dating back to 2017 TECHNIQUE: Bilateral MLO and CC views were obtained digitally with 3-Dmammogram (digital breast tomosynthesis). Computer-aided detection wasutilized in evaluation of this exam (CAD). FINDINGS: There is no evidence of suspicious mass or architectural distortion. Noworrisome calcifications are evident. There has been no significantchange from prior exam(s). BREAST DENSITY: B - There are scattered areas of fibroglandular density. IMPRESSION: No evidence of breast malignancy. BI-RADS CATEGORY: 1 - NEGATIVE RECOMMENDATION: Screening bilateral mammogram is recommended in 1 year. Mammo Location: [facility], [address] [place], [place], [address], . -------- FINAL REPORT -------- Dictated By: Lauren Arita Dictated Date: 01/14/2025 08:40 ET Assigned Physician: Lauren Arita Reviewed and Electronically Signed By: Lauren Arita Signed Date: 01/14/2025 08:42 ET Workstation ID: [id number] Transcribed By: Self Edit Transcribed Date: 01/14/2025 08:40 ET us Syl Ardon MD IMG BI PROCEDURES Final Result * Lipid panel with reflex to direct LDL (10/19/2024 8:30 AM EDT) Cholesterol 163 0 - 200 mg/dL LAB CHEMISTRY METHOD 10/19/2024 10:07 AM EDT [facility] Triglycerides 91 0 - 150 mg/dL LAB CHEMISTRY METHOD 10/19/2024 10:07 AM EDT [facility] HDL 78 >=40 mg/dL LAB CHEMISTRY METHOD 10/19/2024 10:07 AM [facility] LDL Calculated 67 0 - 100 mg/dL LAB CHEMISTRY METHOD 10/19/2024 10:07 AM T [facility] Comment:Estimated LDL Calcul ated using equation: Total cholesterol - HDL cholesterol - (Triglycerides/5) VLDL Cholesterol Sam 18.2 mg/dL LAB CHEMISTRY METHOD 10/19/2024 10:07 AM EDT [facility] Non HDL Chol. (LDL+VLDL) 85 <145 mg/dL LAB CHEMISTRY METHOD 10/19/2024 10:07 AM T [facility] Chol/HDL Ratio 2.1 0.0 - 4.4 LAB CHEMISTRY METHOD 10/19/2024 10:07 AM [facility] Blood Venous blood specimen / Unknown Venipuncture / Unknown 10/19/2024 8:30 AM EDT 10/19/2024 8:30 AM EDT us Syl Ardon MD LAB BLOOD ORDERABLES Final Res ult [facility] [address] [place] [address], [place] [phone] * (ABNORMAL) Comprehensive metabolic panel (10/19/2024 8:30 AM EDT) Sodium 141 133 - 145 mmol/L LAB CHEMISTRY METHOD 10/19/2024 10:42 AM [facility] Potassium 4.5 3.5 - 5.5 mmol/L LAB CHEMISTRY METHOD 10/19/2024 10:42 AM [facility] Chloride 107 96 - 110 mmol/L LAB CHEMISTRY METHOD 10/19/2024 10:42 AM [facility] CO2 29 21 - 32 mmol/L LAB CHEMISTRY METHOD 10/19/2024 10:42 AM [facility] Anion Gap 5 3 - 11 LAB CHEMISTRY METHOD 10/19/2024 10:42 AM [facility] Glucose 87 70 - 100 mg/dL LAB CHEMISTRY METHOD 10/19/2024 10:42 AM [facility] BUN 13 5 - 25 mg/dL LAB CHEMISTRY METHOD 10/19/2024 10:42 AM [facility] Creatinine 0.73 0.50 - 1.10 mg/dL LAB CHEMISTRY METHOD 10/19/2024 10:42 AM [facility] eGFR 92 >=60 mL/min/1. 73m2 LAB CHEMISTRY METHOD 10/19/2024 10:42 AM [facility] Comment:Calculation based on the Chronic Kidney Disease Epidemiology Collaboration (CKD-EPI) equation refit without adjustment for race. BUN/Creatinine Ratio 17.8 LAB CHEMISTRY METHOD 10/19/2024 10:42 AM [facility] Calcium 9.3 8.5 - 10.5 mg/dL LAB CHEMISTRY METHOD 10/19/2024 10:42 AM EDT [facility] AST (SGOT) 26 10 - 42 unit/L LAB CHEMISTRY METHOD 10/19/2024 10:42 AM EDT [facility] ALT (SGPT) 78(H) 10 - 60 unit/L LAB CHEMISTRY METHOD 10/19/2024 10:42 AM EDT [facility] Alkaline Phosphatase 163(H) 42 - 121 unit/L LAB CHEMISTRY METHOD 10/19/2024 10:42 AM EDT [facility] Total Protein 7.0 6.0 - 8.0 g/dL LAB CHEMISTRY METHOD [facility] Albumin 3.7 3.2 - 5.0 g/dL LAB CHEMISTRY METHOD 10/19/2024 10:42 AM [facility] Total Bilirubin 0.4 0.0 - 1.4 mg/dL LAB CHEMISTRY METHOD 10/19/2024 10:42 AM EDT [facility] Blood Venous blood specimen / Unknown Venipuncture / Unknown 10/19/2024 8:30 AM EDT 10/19/2024 8:30 AM EDT us Syl Ardon MD LAB BLOOD ORDERABLES Final Res ult [facility] [address] [place] [address], * DXA BONE DENSITY STUDY 1+ SITS AXIAL SKEL (02/15/2023 2:51 PM EST) Anatomical Region Laterality Modality Bone Densitometr y 11/13/2022 12:0 0 PM EDT Narrative 02/15/2023 3:48 PM EST BONE DENSITY SCAN (DEXA): FINDINGS: Lumbar Spine T-score is -1.9. (SD relative to 20-29 y/o adult) Z-score is -0.2. (SD relative to age matched peers) This is considered osteopenia by WHO criteria. Left Hip T-score is -2.0. Z-score is -0.7. This is considered osteopenia by WHO criteria. Comparison exam(s): None. IMPRESSION: IMPRESSION: Osteopenia by WHO criteria. This patient has a 17% risk of major osteoporotic fracture and a 1.1% risk of hip fracture over the next 10 years. (World Health Organization Fracture Risk Assessment) The [facility] Department of Internal Medicine recommends using National Osteoporosis Foundation (NOF) guidelines in treatment decisions related to osteoporosis. NOF guidelines suggest considering treatment for postmenopausal women and men aged 50 or older presenting with the following: History of hip or vertebral fracture. T-score = -2.5 (DXA) at the femoral neck, total hip, or spine, after appropriate evaluation to exclude secondary causes. Low bone mass (T-score between -1.0 and -2.5 at the femoral neck or spine) AND a 10-year probability of a hip fracture = 3% OR a 10-year probability of a major osteoporosis-related fracture = 20% based on the [place]-adapted WHO algorithm Please note that all treatment decisions require clinical judgment and consideration of individual patient factors, including patient preferences, co-morbidities, previous drug use, risk factors not captured in the FRAX model (e.g., frailty, falls, vitamin D deficiency, increased bone turnover, interval significant decline in bone density) and possible under- or over-estimation of fracture risk by FRAX. Optional alternative screening schedule based on shaka Alanis., [facility] March 29, 2011 for patients with osteopenia (based on hip BMD T-score) is as follows: * advanced osteopenia (T scores -2.00 to -2.49), BMD testing every year * moderate osteopenia (T scores -1.50 to -1.99), BMD testing every 5 years mild osteopenia or normal BMD (T scores -1.50 and higher), BMD testing every 15 years Procedure Note Paige Pope MD - 04/16/2023 BONE DENSITY SCAN (DEXA): FINDINGS: Lumbar Spine T-score is -1.9. (SD relative to 20-29 y/o adult) Z-score is -0.2. (SD relative to age matched peers) This is considered osteopenia by WHO criteria. Left Hip T-score is -2.0. Z-score is -0.7. This is considered osteopenia by WHO criteria. Comparison exam(s): None. IMPRESSION: IMPRESSION: Osteopenia by WHO criteria. This patient has a 17% risk of majorosteoporotic fracture and a 1.1% risk of hip fracture over the next 10 years. (World HealthOrganization Fracture Risk Assessment) The [facility] Department of Internal Medicine recommendsusing National Osteoporosis Foundation (NOF) guidelines in treatment decisions related toosteoporosis. NOF guidelines suggest considering treatment for postmenopausal women and menaged 50 or older presenting with the following: History of hip or vertebral fracture. T-score = -2.5 (DXA) at the femoral neck, total hip, or spine, afterappropriate evaluation to exclude secondary causes. Low bone mass (T-score between -1.0 and -2.5 at the femoral neck or spine)AND a 10-year probability of a hip fracture = 3% OR a 10-year probability of a majorosteoporosis-related fracture = 20% based on the [place]-adapted WHO algorithm Please note that all treatment decisions require clinical judgment andconsideration of individual patient factors, including patient preferences, co- morbidities,previous drug use, risk factors not captured in the FRAX model (e.g., frailty, falls, vitaminD deficiency, increased bone turnover, interval significant decline in bone density) andpossible under- or over-estimation of fracture risk by FRAX. Optional alternative screening schedule based on shaka Alanis., [facility] for patients with osteopenia (based on hip BMD T-score) is as follows: * advanced osteopenia (T scores -2.00 to -2.49), BMD testing every year * moderate osteopenia (T scores -1.50 to -1.99), BMD testing every 5years mild osteopenia or normal BMD (T scores -1.50 and higher), BMD testingevery 15 years Syl Ardon MD IMViv DXA PROCEDURES Final Resul t from Last 3 Months or Most Recently Relevant to Health Maintenance Insurance MEDICAID - [place] Care Teams Director Of Institutional Sales Relationship Specialty Start Date End Date Syl Ardon MD 175 [facility] [address] [place] [phone] PCP - General Internal Medicine 02/17/24
--- OUTSIDE RECORDS SUMMARY | 2025-02-23 15:59 | XMS_ITS | Clinical Summary ---
Author Organization [facility] Prior to 08/08/24 Address [address] [place] [address] Care Team Providers Care [id number] Administrator Name Role Phone Ioana Winkler MD Primary [...] 02/01/2016 Influenza Vaccine (#1) 2024 9, 12/06/2016 Fall Risk Assessment 12/15/2024 Osteoporosis Screening (DEXA Scan) 12/15/2024 RSV Adult > 60+ Yrs or (1 - 1-dose 75+ series) 12/15/2034 Hepatitis B Vaccines Aged Out No long er eligible based on patient's age to complete this topic RSV Ped < 20 months Aged Out No longe r eligible based on patient's age to complete this topic Care Teams [id number] Administrator Relationship Specialty Start Date End Date Ioana Winkler MD PCP - General Internal Medicine 02/04/18
--- OUTSIDE RECORDS SUMMARY | 2025-02-23 15:59 | XMS_ITS | Encounter Summary ---
Author Organization [facility] Address [address] [place] [address] Care Team Providers Care Digital Producer Name Role Phone Syl Ardon MD Primary Care Provider [phone] Encounter Details Date Type Department Care Team (Late Contact Info) Description 01/14/2025 Results Follow-Up Internal Medicine - [facility] 175 [facility] [address] [place] [address] Syl Ardon MD [address] [place] [phone] Social History Tobacco Use Types Packs/Day Years [...] on file Sexual Orientation Not on file documented as of this encounter Plan of Treatment Upcoming Encounters Date Type Department Care Team (Late Contact Info) Description 03/24/2025 10:00 AM EST Nutrition Bariatric Surgery - [facility] 175 [facility] [address] [place] [address] Yaritza Angeles, CANDIDA 175 [facility] [address] [place] [address] 07/06/2025 8:00 AM EDT Office Visit Bariatric Surgery - [facility] 175 [facility] [address] [place] [phone] Nidhi Sales PA [address] [place] [phone] documented as of this encounter Visit Diagnoses Not on filedocumented in this encounter Care Teams Digital Producer Relationship Specialty Start Date End Date Syl Ardon MD 175 [facility] [address] [place] [phone] PCP - General Internal Medicine 02/17/24 documented as of this encounter
== END 2025-02-23 12:59 | disposition home or self-care (01) ==
LOC: HO.HSM 12:09
PROVIDERS: PCP Internal Medicine; Visit Provider Psychiatry & Neurology Neurology
DX: M79.7 Fibromyalgia (principal)
CPT/HCPCS: 99213

== ENCOUNTER → 2025-02-23 12:09 | Outpatient (BNVA) | payer MEDICAID, SELFPAY | PROVIDERS: PCP Internal Medicine; Visit Provider Psychiatry & Neurology Neurology | DX: G89.29 Other chronic pain (principal); M79.7 Fibromyalgia; G25.81 Restless legs syndrome; M54.50 Low back pain, unspecified; Z79.899 Other long term (current) drug therapy | CPT/HCPCS: 99212 ==